=== PATIENT | female | born 1935 | race Caucasian/White ===

== ENCOUNTER 2020-02-16 07:51 | Outpatient (CLI) | payer OTHER | END 2020-02-16 23:59 | disposition home or self-care (01) | LOC: ROC 07:51 | PROVIDERS: ATTEND Radiology Radiation Oncology | DX: G50.0 Trigeminal neuralgia (principal) | CPT/HCPCS: 99214; G0463 ==

== ENCOUNTER 2020-02-23 10:29 | Outpatient (CLI) | payer OTHER ==
[2020-02-23] MEDS ORDERED: GADOTERATE 7.5 MMOL/15 ML SYR ONE (11:30)
== END 2020-02-23 23:59 | disposition home or self-care (01) ==
LOC: CFH 10:29
PROVIDERS: ATTEND Radiology Radiation Oncology
DX: G50.0 Trigeminal neuralgia (principal)
CPT/HCPCS: 70553; A9575

== ENCOUNTER → 2020-08-22 | Outpatient (CLI) | payer OTHER | END | disposition home or self-care (01) | LOC: ROC 07:30 | PROVIDERS: ATTEND Radiology Radiation Oncology | DX: G50.0 Trigeminal neuralgia (principal) | CPT/HCPCS: 99212; G0463 ==